=== PATIENT | male | born 1995 | race Caucasian/White ===

== ENCOUNTER → 2017-01-26 | Outpatient (CLI) | payer OTHER ==
[~2017-01-26] VITALS: Ht 180.3 cm; Wt 77.1 kg
[~2017-01-26] MED LIST: LIDOCAINE 2% INJ 100 MG/5 ML SDV (FOR ANES.) As Ordered ONE; NS 1,000 ML IV ONE; PROPOFOL 200 MG/20 ML VIAL As Ordered ONE
--- NOTE | 2017-01-26 10:02 | ROOR ---
Patient Name: Matias Sanchez Procedure Date: 01/26/2017 9:29 AM Date of : 1995 Age: 21 Room: OP02 Gender: Male Note Status: Finalized Procedure: Total Colonoscopy to Cecum + ileoscopy + Bx Indications: Rectal bleeding, Change in bowel habits, Diarrhea (presumed secondary to ulcerative colitis), Clinically significant diarrhea of unexplained origin Providers: Chuckie Cisneros MD Referring MD: CECILIO HERNANDES MD Requesting Provider: Medicines: Monitored Anesthesia Care Complications: No immediate complications. Procedure: Pre-Anesthesia Assessment: - The heart rate, respiratory rate, oxygen saturations, blood pressure, adequacy of pulmonary ventilation, and response to care were monitored throughout the procedure. The Colonoscope was introduced through the anus and advanced to the terminal ileum, with identification of the appendiceal orifice and IC valve. The colonoscopy was performed without difficulty. The patient tolerated the procedure well. The quality of the bowel preparation was excellent. Findings: The perianal and digital rectal examinations were normal. Non-bleeding internal hemorrhoids were found during retroflexion. The hemorrhoids were small and Grade I (internal hemorrhoids that do not prolapse). Inflammation characterized by adherent blood, altered vascularity, congestion (edema), erosions, erythema, friability, granularity, loss of vascularity and shallow ulcerations was found in a continuous and circumferential pattern from the anus to the descending colon. The mid descending colon to the cecum were spared. This was severe. Biopsies were taken with a cold forceps for histology. The exam was otherwise without abnormality. The terminal ileum appeared normal. Impression: - Non-bleeding internal hemorrhoids. - Left-sided ulcerative colitis. Inflammation was found from the anus to the descending colon. This was severe. Biopsied. - The examination was otherwise normal. - The examined portion of the ileum was normal. - The exam was otherwise normal to the cecum. Recommendation: - Patient has a contact number available for emergencies. The signs and symptoms of potential delayed complications were discussed with the patient. Return to normal activities tomorrow. Written discharge instructions were provided to the patient. - Discharge patient to home. - Continue present medications. - Await pathology results. - Telephone GI clinic for pathology results in 1 week. - Use prednisone 30 mg PO once a day. - Return to my office in 1 month. - The findings and recommendations were discussed with the patient's family. Chuckie Cisneros MD Chuckie Cisneros MD 01/26/2017 10:02:16 AM This report has been signed electronically. Number of Addenda: 0 Note Initiated On: 01/26/2017 9:29 AM Estimated Blood Loss: Estimated blood loss: none.
[2017-01-26 10:25] VITALS: BP 115/61
== END | disposition home or self-care (01) ==
LOC: M OPP 08:16
PROVIDERS: ATTEND Internal Medicine Gastroenterology
DX: K62.5 Hemorrhage of anus and rectum (principal); R19.4 Change in bowel habit; R19.7 Diarrhea, unspecified; K64.0 First degree hemorrhoids; K51.511 Left sided colitis with rectal bleeding